=== PATIENT | male | born 1965 | race Caucasian/White ===

== ENCOUNTER 2018-04-17 07:01 | Emergency (ER) | payer MEDICAID ==
[~2018-04-17] VITALS: Ht 180.3 cm; Wt 111.0 kg
[2018-04-17 09:06] LABS: EOSINOPHILS % 2.4 % (0.0-5.0); HEMATOCRIT. 42.6 % (42.0-52.0); HEMOGLOBIN. 14.7 g/dL (14.0-18.0); LYMPHOCYTES % 32.3 % (20.0-50.0); MEAN CORPUSCULAR HEMOGLOBIN 32.5 pg (28.0-32.0); MEAN CORPUSCULAR VOLUME 94.6 fL (80.0-94.0); MEAN PLATELET VOLUME 9.3 fl (7.4-10.4); MONOCYTES % 9.3 % (2.0-8.0); PLATELET 159 x1000/uL (130-400); RED BLOOD CELL COUNT 4.51 mill/uL (4.7-6.1); RED CELL DISTRIBUTION WIDTH 14.2 % (11.6-14.6)
[2018-04-17 09:10] LABS: CHLORIDE 101 mEq/L (98-107)
[2018-04-17 09:14] LABS: PROTHROMBIN TIME 10.2 sec (9.1-11.1)
[2018-04-17] MEDS ORDERED: MAGNESIUM/ALUMINUM HYDROXIDE/SIMETHICONE 30ML UDC PO STA (09:14)
[2018-04-17] MEDS ORDERED: KETOROLAC 30MG/ML VIAL IV STA (09:14)
[2018-04-17] MEDS ORDERED: ONDANSETRON HCL 4MG/2ML INJ IV STA (09:14)
[2018-04-17] MEDS ORDERED: SODIUM CHLORIDE 0.9% 1,000 ML IV ONE (09:14)
[2018-04-17 09:49] LABS: CLARITY URINE CLEAR (CLEAR); COLOR URINE YELLOW (YELLOW); KETONES URINE NEGATIVE (NEGATIVE); LEUKOCYTE ESTERASE URINE NEGATIVE (NEGATIVE); NITRITE URINE NEGATIVE (NEGATIVE); OCCULT BLOOD URINE NEGATIVE (NEGATIVE); PROTEIN URINE NEGATIVE (NEGATIVE); UROBILINOGEN URINE 0.2 E.U./dL (0.2-1.0)
[2018-04-17 10:30] VITALS: BP 127/96
== END 2018-04-17 11:34 | disposition home or self-care (01) ==
LOC: ER 07:01
DX: K85.90 Acute pancreatitis without necrosis or infection, unspecified (principal); R10.13 Epigastric pain; F32.9 Major depressive disorder, single episode, unspecified; E11.9 Type 2 diabetes mellitus without complications; I10 Essential (primary) hypertension; Z96.659 Presence of unspecified artificial knee joint; Z96.649 Presence of unspecified artificial hip joint; Z98.890 Other specified postprocedural states
CPT/HCPCS: 36415; 74176; 80053; 81003; 83690; 85025; 85610; 96374; 96375; 99284; J1885; J2405; J7030; Z7610

== ENCOUNTER 2018-05-30 15:53 | Inpatient (IN) | payer MEDICAID, OTHER ==
[~2018-05-30] VITALS: Ht 172.7 cm; Wt 104.8 kg
[2018-05-31] MEDS ORDERED: METOCLOPRAMIDE HCL 10MG/2ML VIAL IV STA (03:30)
[2018-05-31] MEDS ORDERED: FAMOTIDINE 20MG/2ML VIAL IV STA (03:30)
[2018-05-31] MEDS ORDERED: MORPHINE SULFATE 4 MG/ML CPJ (NOT FOR IM USE) IV STA (03:30)
[2018-05-31] MEDS ORDERED: SODIUM CHLORIDE 0.9% 1,000 ML IV ONE ×2 (03:30→05:38)
[2018-05-31 04:11] LABS: HEMATOCRIT. 48.2 % (42.0-52.0); HEMOGLOBIN. 17.2 g/dL (14.0-18.0); MEAN CORPUSCULAR HEMOGLOBIN 32.1 pg (28.0-32.0); MEAN CORPUSCULAR VOLUME 90.2 fL (80.0-94.0); MEAN PLATELET VOLUME 9.6 fl (7.4-10.4); PLATELET 303 x1000/uL (130-400); RED BLOOD CELL COUNT 5.35 mill/uL (4.7-6.1); RED CELL DISTRIBUTION WIDTH 13.4 % (11.6-14.6)
[2018-05-31 04:13] LABS: CLARITY URINE CLEAR (CLEAR); COLOR URINE YELLOW (YELLOW); KETONES URINE TRACE (NEGATIVE); LEUKOCYTE ESTERASE URINE TRACE (NEGATIVE); NITRITE URINE NEGATIVE (NEGATIVE); OCCULT BLOOD URINE NEGATIVE (NEGATIVE); PROTEIN URINE TRACE (NEGATIVE); SPECIFIC GRAVITY URINE 1.021 (1.005-1.030)
[2018-05-31 04:21] LABS: CHLORIDE 93 mEq/L (98-107)
[2018-05-31] MEDS ORDERED: CEFTRIAXONE 1 G PREMIX 50 ML IV ONE (05:45)
[2018-05-31 09:00] VITALS: BP 141/87
[2018-05-31 09:10] VITALS: BP 141/87
[2018-05-31 09:35] LABS: PLATELET ESTIMATE NORMAL
[2018-05-31] MEDS ORDERED: BENA1TAB18 MT (09:56)
[2018-05-31] MEDS ORDERED: TRAZ-212 PO (09:56)
[2018-05-31] MEDS ORDERED: ASPI-1158 PO (09:56)
[2018-05-31] MEDS ORDERED: DOCUSATE SODIUM 100MG CAPSULE PO PRN (10:00)
[2018-05-31] MEDS ORDERED: MAGNESIUM/ALUMINUM HYDROXIDE/SIMETHICONE 30ML UDC PO PRN (10:00)
[2018-05-31] MEDS ORDERED: GUAIFENESIN 200MG/10ML SUGAR FREE UDC PO PRN (10:00)
[2018-05-31] MEDS ORDERED: IPRATROPIUM/ALBUTEROL 0.5-3(2.5)MG/3ML NEB INH PRN (10:00)
[2018-05-31] MEDS ORDERED: ZOLPIDEM TARTRATE 5MG TABLET PO PRN (10:00)
[2018-05-31] MEDS ORDERED: CLONIDINE 0.1MG TABLET PO PRN (10:00)
[2018-05-31] MEDS ORDERED: ACETAMINOPHEN 325MG TABLET PO PRN (10:00)
[2018-05-31] MEDS: KETOROLAC 30MG/ML VIAL IV PRN ×2 (10:52→22:43)
[2018-05-31 11:27] LABS: HEPATITIS B SURFACE ANTIGEN NEGATIVE
[2018-05-31 11:57] LABS: HEPATITIS A AB IGM NEGATIVE (NEGATIVE)
[2018-05-31 12:00] VITALS: BP 129/90
[2018-05-31] MEDS: SUCRALFATE 1 G/10 ML UDC PO SCH ×3 (12:28→22:38)
[2018-05-31] MEDS: ENOXAPARIN 30MG/0.3ML SYR SUBCUT SCH ×2 (12:28→22:37)
[2018-05-31 16:00] VITALS: BP 128/88
[2018-05-31 20:00] VITALS: BP 147/95
[2018-05-31 21:47] LABS: *AMPHETAMINES SCREEN URINE NEGATIVE (NEGATIVE); *BARBITURATES SCREEN URINE NEGATIVE (NEGATIVE); *BENZODIAZEPINES SCREEN URINE NEGATIVE (NEGATIVE); *COCAINE SCREEN URINE NEGATIVE (NEGATIVE); METHADONE URINE SCREEN NEGATIVE (NEGATIVE); OPIATES URINE SCREEN PRESUMTIVE POSITIVE (NEGATIVE)
[2018-05-31 21:48] LABS: CANNABINOID URINE SCREEN PRESUMTIVE POSITIVE (NEGATIVE); PHENCYCLIDINE URINE SCREEN NEGATIVE (NEGATIVE)
[2018-05-31] MEDS: ONDANSETRON HCL 4MG/2ML INJ IV PRN (22:44)
[2018-06-01] VITALS: BP 133/94
[2018-06-01] MEDS: ONDANSETRON HCL 4MG/2ML INJ IV PRN ×2 (03:02→08:14)
[2018-06-01 04:00] VITALS: BP 148/103
[2018-06-01] MEDS: SUCRALFATE 1 G/10 ML UDC PO SCH (06:54)
[2018-06-01 08:00] VITALS: BP 160/99
[2018-06-01] MEDS: ENOXAPARIN 30MG/0.3ML SYR SUBCUT SCH (08:14)
[2018-06-01] MEDS ORDERED: PANTOPRAZOLE SODIUM 40 MG/VIAL IV SCH (09:00)
[2018-06-02] MEDS ORDERED: BUPR300T52 PO (06:43)
[2018-06-02] MEDS ORDERED: BUSP5TAB3 PO (06:43)
[2018-06-02] MEDS ORDERED: TEMA7.5C6 MT (06:44)
== END 2018-06-01 09:10 | disposition left against medical advice (07) | DRG 241 ==
LOC: ER 16:30 → 6EST 05-31 05:45 → EDBEDREQ 05-31 05:48 → EDBEDREQTM 05-31 05:48 → ENRESERV 05-31 08:08
PROVIDERS: ADMIT Internal Medicine; ATTEND Internal Medicine
DX: K29.70 Gastritis, unspecified, without bleeding (principal); K74.60 Unspecified cirrhosis of liver; E83.52 Hypercalcemia; E11.9 Type 2 diabetes mellitus without complications; E87.1 Hypo-osmolality and hyponatremia; F12.10 Cannabis abuse, uncomplicated; I10 Essential (primary) hypertension; Z96.649 Presence of unspecified artificial hip joint; Z96.659 Presence of unspecified artificial knee joint; F32.9 Major depressive disorder, single episode, unspecified; K21.9 Gastro-esophageal reflux disease without esophagitis; Z53.21 Procedure and treatment not carried out due to patient leaving prior to being seen by health care provider; Z79.82 Long term (current) use of aspirin
CPT/HCPCS: 36415; 74176; 76705; 80305; 80320; 83036; 83605; 84145; 86705; 86709; 86803; 87340; 93970; 96361; 96374; 96375; 99285; C9113; J0696; J1650; J1885; J2270; J2405; J2765; J3490; J7030; G0480

== ENCOUNTER 2018-06-01 16:15 | Inpatient (IN) | payer OTHER, MEDICAID ==
[~2018-06-01] VITALS: Ht 180.3 cm; Wt 101.6 kg
[~2018-06-01 16:15] MED LIST: ASPI-1158 PO; BENA1TAB18 MT; TRAZ-212 PO
[2018-06-02] MEDS ORDERED: SODIUM CHLORIDE 0.9% 1,000 ML IV ONE (00:08)
[2018-06-02] MEDS ORDERED: ONDANSETRON HCL 4MG/2ML INJ IV STA (00:08)
[2018-06-02] MEDS ORDERED: MORPHINE SULFATE 4 MG/ML CPJ (NOT FOR IM USE) IV STA (00:08)
[2018-06-02 00:31] LABS: BASOPHILS % 0.6 % (0.0-2.0); EOSINOPHILS % 0.4 % (0.0-5.0); HEMATOCRIT. 41.7 % (42.0-52.0); LYMPHOCYTES % 29.5 % (20.0-50.0); MEAN CORPUSCULAR VOLUME 89.8 fL (80.0-94.0); MEAN PLATELET VOLUME 9.4 fl (7.4-10.4); MONOCYTES % 9.1 % (2.0-8.0); NEUTROPHILS % 60.4 % (40.0-76.0); PLATELET 206 x1000/uL (130-400); RED BLOOD CELL COUNT 4.64 mill/uL (4.7-6.1); RED CELL DISTRIBUTION WIDTH 13.1 % (11.6-14.6)
[2018-06-02 00:38] LABS: CHLORIDE 99 mEq/L (98-107); INR 1.1; PROTHROMBIN TIME 10.9 sec (9.1-11.1)
[2018-06-02 01:41] LABS: HEMOGLOBIN. 15.1 g/dL (14.0-18.0); MEAN CORPUSCULAR HEMOGLOBIN 32.5 pg (28.0-32.0)
[2018-06-02 04:30] VITALS: BP 145/96
[2018-06-02] MEDS ORDERED: BUSP5TAB3 PO (06:43)
[2018-06-02] MEDS ORDERED: BUPR300T52 PO (06:43)
[2018-06-02] MEDS ORDERED: TEMA7.5C6 MT (06:44)
[2018-06-02 09:15] VITALS: BP 158/101
[2018-06-02] MEDS ORDERED: ACETAMINOPHEN 325MG TABLET PO PRN ×2 (09:30→10:30)
[2018-06-02] MEDS ORDERED: KETOROLAC 15MG/ML VIAL IV PRN (10:30)
[2018-06-02] MEDS ORDERED: MAGNESIUM/ALUMINUM HYDROXIDE/SIMETHICONE 30ML UDC PO PRN (10:30)
[2018-06-02] MEDS ORDERED: IPRATROPIUM/ALBUTEROL 0.5-3(2.5)MG/3ML NEB INH PRN (10:30)
[2018-06-02] MEDS ORDERED: CLONIDINE 0.1MG TABLET PO PRN (10:30)
[2018-06-02] MEDS ORDERED: GUAIFENESIN 200MG/10ML SUGAR FREE UDC PO PRN (10:30)
[2018-06-02] MEDS ORDERED: ONDANSETRON HCL 4MG/2ML INJ IV PRN (10:30)
[2018-06-02] MEDS ORDERED: DOCUSATE SODIUM 100MG CAPSULE PO PRN (10:30)
[2018-06-02] MEDS: SUCRALFATE 1 G/10 ML UDC PO SCH ×3 (12:35→21:38)
[2018-06-02] MEDS: ENOXAPARIN 30MG/0.3ML SYR SUBCUT SCH (12:36)
[2018-06-02 16:45] LABS: CLARITY URINE CLEAR (CLEAR); COLOR URINE YELLOW (YELLOW); KETONES URINE 1+ (NEGATIVE); LEUKOCYTE ESTERASE URINE NEGATIVE (NEGATIVE); NITRITE URINE NEGATIVE (NEGATIVE); OCCULT BLOOD URINE NEGATIVE (NEGATIVE); PH URINE 5.5 (4.5-8.0); PROTEIN URINE NEGATIVE (NEGATIVE); SPECIFIC GRAVITY URINE 1.021 (1.005-1.030)
[2018-06-02 16:57] LABS: *COCAINE SCREEN URINE NEGATIVE (NEGATIVE)
[2018-06-02 16:58] LABS: *BARBITURATES SCREEN URINE NEGATIVE (NEGATIVE); *BENZODIAZEPINES SCREEN URINE NEGATIVE (NEGATIVE); CANNABINOID URINE SCREEN PRESUMTIVE POSITIVE (NEGATIVE); METHADONE URINE SCREEN NEGATIVE (NEGATIVE); OPIATES URINE SCREEN PRESUMTIVE POSITIVE (NEGATIVE); PHENCYCLIDINE URINE SCREEN NEGATIVE (NEGATIVE)
[2018-06-02 16:59] LABS: *AMPHETAMINES SCREEN URINE NEGATIVE (NEGATIVE)
[2018-06-02 20:12] VITALS: BP 167/105
[2018-06-02] MEDS ORDERED: ZOLPIDEM TARTRATE 5MG TABLET PO PRN (21:00)
[2018-06-03] VITALS: BP 144/101
[2018-06-03] MEDS: ENOXAPARIN 30MG/0.3ML SYR SUBCUT SCH ×2 (00:03→09:12)
[2018-06-03 04:00] VITALS: BP 136/91
[2018-06-03 08:00] VITALS: BP 139/96
[2018-06-03] MEDS ORDERED: PANTOPRAZOLE SODIUM 40 MG/VIAL IV SCH (09:00)
[2018-06-03] MEDS: SUCRALFATE 1 G/10 ML UDC PO SCH ×2 (09:12→11:38)
[2018-06-03 11:44] VITALS: BP 158/99
[2018-06-03 11:53] VITALS: BP 139/96
== END 2018-06-03 12:14 | disposition home or self-care (01) | DRG 241 ==
LOC: ER 16:15 → EDBEDREQ 06-02 00:35 → EDBEDREQTM 06-02 03:30 → EDBEDREQ 06-02 03:30 → ENRESERV 06-02 03:46 → 6EST 06-02 04:27
PROVIDERS: ADMIT Internal Medicine; ATTEND Internal Medicine
DX: K29.70 Gastritis, unspecified, without bleeding (principal); E83.51 Hypocalcemia; K74.60 Unspecified cirrhosis of liver; E83.52 Hypercalcemia; F12.10 Cannabis abuse, uncomplicated; I10 Essential (primary) hypertension; Z96.649 Presence of unspecified artificial hip joint; Z96.659 Presence of unspecified artificial knee joint; F32.9 Major depressive disorder, single episode, unspecified; Z79.899 Other long term (current) drug therapy; Z79.82 Long term (current) use of aspirin
CPT/HCPCS: 36415; 80305; 96374; 96375; 99285; C9113; J1650; J2270; J2405; J7030